=== PATIENT | male | born 1950 ===

== ENCOUNTER 2023-01-23 09:38 | Emergency (ER) | payer MEDICARE ==
[2023-01-23 10:33] LABS: BASOPHILS ABSOLUTE AUTO 0.03 K/uL (0.00-0.20); BASOPHILS PERCENT AUTO 0.3 % (0.0-2.0); HEMOGLOBIN 15.8 g/dL (13.1-16.8); LYMPHOCYTES ABSOLUTE AUTO 0.77 K/uL (0.50-3.50); LYMPHOCYTES PERCENT AUTO 7.2 % (10.0-50.0); MEAN CORPUSCULAR HEMOGLOBIN 29.4 pg (28.2-33.3); MEAN CORPUSCULAR HGB CONC 34.3 g/dL (31.7-36.0); MEAN CORPUSCULAR VOLUME 85.5 fL (84.0-98.0); MONOCYTES ABSOLUTE AUTO 0.61 K/uL (0.00-1.00); MONOCYTES PERCENT AUTO 5.7 % (2.0-14.0); NEUTROPHILS PERCENT AUTO 86.8 % (45.0-80.0); PLATELET COUNT,PLT 379 K/uL (150-350); RED BLOOD CELL COUNT 5.38 M/uL (4.33-5.41); RED CELL DISTRIBUTION WIDTH 13.1 % (11.2-14.1); WHITE BLOOD CELL COUNT,WBC 10.7 K/uL (4.0-10.2)
[2023-01-23 10:50] LABS: APPEARANCE,URINE CLEAR; BILIRUBIN,URINE SMALL (NEGATIVE); COLOR,URINE YELLOW; GLUCOSE,URINE NEGATIVE (NEGATIVE); KETONES,URINE 15 mg/dL (NEGATIVE); LEUKOCYTE ESTERASE,URINE NEGATIVE (NEGATIVE); NITRITE,URINE NEGATIVE (NEGATIVE); OCCULT BLOOD,URINE NEGATIVE (NEGATIVE); PH,URINE 6.5 (5.0-9.0); PROTEIN,URINE 100 mg/dL (NEGATIVE)
[2023-01-23 10:54] LABS: ALBUMIN 3.8 g/dL (3.4-5.0); BILIRUBIN TOTAL 0.9 mg/dL (0.2-1.0); CALCIUM 9.1 mg/dL (8.5-10.1); CARBON DIOXIDE,CO2 27.8 mmol/L (21.0-32.0); CREATININE 1.11 mg/dL (0.51-1.17); EST CRCL DRUG DOSING (CG) 50.79 mL/min; POTASSIUM,K 3.8 mmol/L (3.5-5.1); PROTEIN TOTAL,TP 7.7 g/dL (6.4-8.2)
[2023-01-23 10:57] LABS: PROTHROMBIN TIME 9.9 SEC (9.0-11.1)
[2023-01-23 10:59] LABS: HYALINE CASTS,URINE MANY; RBC,URINE 0-5 /HPF; WBC,URINE 0-5 /HPF
[2023-01-23 11:00] LABS: MUCUS,URINE MANY /LPF (NEGATIVE)
[2023-01-23 11:17] LABS: INFLUENZA A NAA NEGATIVE (NEGATIVE); INFLUENZA B NAA NEGATIVE (NEGATIVE); RESPIRATORY SYNCYTIAL VIR NAA NEGATIVE (NEGATIVE)
[2023-01-23 11:22] LABS: CORONAVIRUS COVID-19 NAA POSITIVE (NEGATIVE)
[2023-01-23 12:59] VITALS: BP 146/74; PULSE 92
== END 2023-01-23 11:45 | disposition home or self-care (01) ==
LOC: LL.ED 09:38
DX: U07.1 COVID-19 (principal); I10 Essential (primary) hypertension; J44.9 Chronic obstructive pulmonary disease, unspecified; M19.90 Unspecified osteoarthritis, unspecified site; Z91.048 Other nonmedicinal substance allergy status; Z79.899 Other long term (current) drug therapy; Z79.82 Long term (current) use of aspirin
CPT/HCPCS: 0241U; 36415; 80053; 81001; 84484; 85025; 85610; 93005; 99284

== ENCOUNTER 2023-02-27 14:48 | Emergency (ER) | payer MEDICARE ==
[2023-02-27 16:00] VITALS: BP 126/67; PULSE 86
== END 2023-02-27 16:07 | disposition home or self-care (01) ==
LOC: LL.ED 14:48
DX: S63.255A Unspecified dislocation of left ring finger, initial encounter (principal); E78.00 Pure hypercholesterolemia, unspecified; I10 Essential (primary) hypertension; J44.9 Chronic obstructive pulmonary disease, unspecified; Z87.891 Personal history of nicotine dependence; Z91.048 Other nonmedicinal substance allergy status; Z79.82 Long term (current) use of aspirin; Z79.899 Other long term (current) drug therapy; W10.8XXA Fall (on) (from) other stairs and steps, initial encounter; Y92.009 Unspecified place in unspecified non-institutional (private) residence as the place of occurrence of the external cause
CPT/HCPCS: 73140-F3; 99283

== ENCOUNTER 2023-04-25 07:52 | Day surgery (SDC) | payer MEDICARE ==
[~2023-04-25 07:52] MED LIST: Lactated Ringers 1,000 ML IV SCH; Midazolam 1 MG/ML 2 ML SDV ONE; Propofol 200 MG/20 ML SDV ONE; Sodium Chloride 0.9% 10 ML Syringe FLUSH PRN
[2023-04-25] MEDS: Lactated Ringers 1,000 ML IV SCH (07:58)
[2023-04-25] MEDS ORDERED: Sodium Chloride 0.9% 10 ML Syringe FLUSH PRN (08:00)
[2023-04-25 12:13] VITALS: BP 123/90; PULSE 79
== END 2023-04-25 11:23 | disposition home or self-care (01) ==
LOC: LL.SDS 07:52
PROVIDERS: ATTEND Surgery
DX: Z12.11 Encounter for screening for malignant neoplasm of colon (principal); N40.0 Benign prostatic hyperplasia without lower urinary tract symptoms; E78.5 Hyperlipidemia, unspecified; F32.A Depression, unspecified; E66.9 Obesity, unspecified; Z68.35 Body mass index [BMI] 35.0-35.9, adult; G89.29 Other chronic pain; Z87.891 Personal history of nicotine dependence; Z79.82 Long term (current) use of aspirin; Z79.899 Other long term (current) drug therapy
CPT/HCPCS: 00812; 82947; J2250; J2704; J7120